=== PATIENT | female | born 1985 | race Caucasian/White ===

== ENCOUNTER 2017-08-21 11:50 | Emergency (ER) | payer MEDICAID ==
[~2017-08-21] VITALS: Ht 157.5 cm; Wt 78.5 kg
[2017-08-21 11:55] VITALS: Ht 157.5 cm; Wt 78.5 kg
[2017-08-21 13:34] LABS: microscopic required? YES; urine erythrocyte NEGATIVE (NEGATIVE)
[2017-08-21 14:08] VITALS: BP 118/76
== END 2017-08-21 14:08 | disposition home or self-care (01) ==
LOC: ED 11:50
PROVIDERS: Emergency Medicine
DX: O99.611 Diseases of the digestive system complicating pregnancy, first trimester (principal); R11.2 Nausea with vomiting, unspecified; R10.13 Epigastric pain; Z3A.12 12 weeks gestation of pregnancy
CPT/HCPCS: Q0162

== ENCOUNTER 2017-10-15 17:36 | Emergency (ER) | payer MEDICAID ==
[~2017-10-15] VITALS: Ht 157.5 cm; Wt 80.7 kg
[2017-10-15 17:38] VITALS: Ht 157.5 cm; Wt 80.7 kg
[2017-10-15 18:59] LABS: PLATELET COUNT 239 x10^3mcL (130-400); RED CELL DISTRIBUTION WIDTH 13.9 % (11.5-14.5)
[2017-10-15 19:00] LABS: microscopic required? NO
[2017-10-15 19:12] LABS: CALCIUM 8.5 mg/dL (8.5-10.1); CARBON DIOXIDE 26.7 mmol/L (21-32); CHLORIDE SERUM 106 mmol/L (98-107); GLUCOSE SERUM 92 mg/dL (74-106); POTASSIUM SERUM 3.5 mmol/L (3.5-5.1); SODIUM SERUM 139 mmol/L (136-145)
[2017-10-15 19:16] LABS: ALKALINE PHOSPHATASE 73 U/L (46-116); ALT/SGPT 16 U/L (14-59); AST/SGOT 15 U/L (15-37); BILIRUBIN TOTAL 0.1 mg/dL (0.20-1.00)
[2017-10-15 19:29] LABS: UA SPECIFIC GRAVITY <=1.005 (1.005-1.035); urine erythrocyte NEGATIVE (NEGATIVE)
[2017-10-15 19:30] LABS: ALBUMIN 2.8 g/dL (3.4-5.0)
[2017-10-15 19:41] LABS: CREATININE SERUM 0.5 mg/dL (0.6-1.0); GFR1 > 60 mL/min
[2017-10-16 00:07] VITALS: BP 121/60
== END 2017-10-16 00:07 | disposition home or self-care (01) ==
LOC: ED 17:36
PROVIDERS: Emergency Medicine
DX: O26.892 Other specified pregnancy related conditions, second trimester (principal); R42 Dizziness and giddiness; R06.02 Shortness of breath; R51 Headache; R35.0 Frequency of micturition; H53.8 Other visual disturbances; Z3A.20 20 weeks gestation of pregnancy
CPT/HCPCS: 36415; 83880; 85378; Q0092

== ENCOUNTER 2018-09-22 11:35 | Emergency (ER) | payer MEDICAID ==
[~2018-09-22] VITALS: Ht 162.6 cm; Wt 85.3 kg
[2018-09-22 11:39] VITALS: Ht 162.6 cm; Wt 85.3 kg
[2018-09-22 12:58] VITALS: BP 129/68
== END 2018-09-22 12:58 | disposition home or self-care (01) ==
LOC: ED 11:35
DX: M62.838 Other muscle spasm (principal); M62.830 Muscle spasm of back; H66.91 Otitis media, unspecified, right ear
CPT/HCPCS: J2001

== ENCOUNTER 2018-09-26 17:15 | Emergency (ER) | payer MEDICAID | END 2018-09-26 18:31 | disposition home or self-care (01) | LOC: ED 17:15 ==

== ENCOUNTER 2019-03-01 15:53 | Emergency (ER) | payer MEDICAID ==
[~2019-03-01] VITALS: Ht 157.5 cm; Wt 83.9 kg
[2019-03-01 15:56] VITALS: Ht 157.5 cm; Wt 83.9 kg
[2019-03-01 18:32] LABS: BASOPHIL % 0.8 % (0-2); PLATELET COUNT 290 x10^3mcL (130-400); RED CELL DISTRIBUTION WIDTH 13.2 % (11.5-14.5)
[2019-03-01 18:42] LABS: microscopic required? NO
[2019-03-01 18:52] LABS: CALCIUM 8.4 mg/dL (8.5-10.1); CARBON DIOXIDE 25.9 mmol/L (21-32); CHLORIDE SERUM 105 mmol/L (98-107); CREATININE SERUM 0.5 mg/dL (0.6-1.0); GFR1 > 60 mL/min; GLUCOSE SERUM 87 mg/dL (74-106); POTASSIUM SERUM 3.9 mmol/L (3.5-5.1); SODIUM SERUM 140 mmol/L (136-145)
[2019-03-01 18:57] LABS: ALBUMIN 3.7 g/dL (3.4-5.0); ALKALINE PHOSPHATASE 87 U/L (46-116); ALT/SGPT 25 U/L (14-59); AMYLASE 54 U/L (25-115); AST/SGOT 15 U/L (15-37); BILIRUBIN TOTAL 0.2 mg/dL (0.20-1.00); LIPASE 59 IU/L (73-393); TOTAL PROTEIN, SERUM 7.5 g/dL (6.4-8.2)
[2019-03-01 19:01] LABS: UA SPECIFIC GRAVITY 1.015 (1.005-1.035); urine erythrocyte NEGATIVE (NEGATIVE)
[2019-03-01 19:47] VITALS: BP 116/707
== END 2019-03-01 19:47 | disposition home or self-care (01) ==
LOC: ED 15:53
PROVIDERS: Emergency Medicine
DX: R10.32 Left lower quadrant pain (principal); R10.31 Right lower quadrant pain; R30.0 Dysuria; N32.89 Other specified disorders of bladder
CPT/HCPCS: J1885

== ENCOUNTER 2019-03-29 16:26 | Emergency (ER) | payer MEDICAID ==
[~2019-03-29] VITALS: Ht 157.5 cm; Wt 83.6 kg
[2019-03-29 16:57] VITALS: Ht 157.5 cm; Wt 83.6 kg
[2019-03-29 18:35] LABS: PLATELET COUNT 281 x10^3mcL (130-400); RED CELL DISTRIBUTION WIDTH 13.6 % (11.5-14.5)
[2019-03-29 18:42] LABS: UA SPECIFIC GRAVITY <=1.005 (1.005-1.035); microscopic required? YES; urine erythrocyte 3+ (NEGATIVE)
[2019-03-29 18:51] LABS: CALCIUM 8.6 mg/dL (8.5-10.1); CARBON DIOXIDE 26.4 mmol/L (21-32); CHLORIDE SERUM 106 mmol/L (98-107); CREATININE SERUM 0.6 mg/dL (0.6-1.0); GFR1 > 60 mL/min; GLUCOSE SERUM 86 mg/dL (74-106); POTASSIUM SERUM 4.3 mmol/L (3.5-5.1); SODIUM SERUM 141 mmol/L (136-145)
[2019-03-29 18:55] LABS: ALBUMIN 3.7 g/dL (3.4-5.0); ALKALINE PHOSPHATASE 75 U/L (46-116); ALT/SGPT 27 U/L (14-59); AST/SGOT 15 U/L (15-37); BILIRUBIN TOTAL 0.2 mg/dL (0.20-1.00); TOTAL PROTEIN, SERUM 7.3 g/dL (6.4-8.2)
[2019-03-29 22:35] VITALS: BP 126/90
== END 2019-03-29 22:35 | disposition home or self-care (01) ==
LOC: ED 16:26
PROVIDERS: Emergency Medicine
DX: O20.9 Hemorrhage in early pregnancy, unspecified (principal); O23.41 Unspecified infection of urinary tract in pregnancy, first trimester; Z3A.01 Less than 8 weeks gestation of pregnancy; Z86.32 Personal history of gestational diabetes
CPT/HCPCS: 36415; 87491; 87591; J0696

== ENCOUNTER 2019-04-02 17:12 | Emergency (ER) | payer MEDICAID ==
[~2019-04-02] VITALS: Ht 162.6 cm; Wt 84.8 kg
[2019-04-02 17:33] VITALS: Ht 162.6 cm; Wt 84.8 kg
[2019-04-02 19:13] LABS: BASOPHIL % 1.2 % (0-2); PLATELET COUNT 305 x10^3mcL (130-400); RED CELL DISTRIBUTION WIDTH 13.8 % (11.5-14.5)
[2019-04-02 20:25] VITALS: BP 116/60
== END 2019-04-02 20:25 | disposition home or self-care (01) ==
LOC: ED 17:12
PROVIDERS: Specialist
DX: O20.0 Threatened abortion (principal); Z3A.01 Less than 8 weeks gestation of pregnancy
CPT/HCPCS: 36415

== ENCOUNTER 2019-04-07 16:27 | Emergency (ER) | payer MEDICAID ==
[~2019-04-07] VITALS: Ht 160 cm; Wt 83.5 kg
[2019-04-07 16:32] VITALS: Ht 160 cm; Wt 83.5 kg
[2019-04-07 17:06] LABS: BASOPHIL % 1.2 % (0-2); PLATELET COUNT 332 x10^3mcL (130-400); RED CELL DISTRIBUTION WIDTH 13.6 % (11.5-14.5)
[2019-04-07 18:06] VITALS: BP 129/78
== END 2019-04-07 18:23 | disposition home or self-care (01) ==
LOC: ED 16:27
PROVIDERS: Emergency Medicine
DX: O03.9 Complete or unspecified spontaneous abortion without complication (principal)
CPT/HCPCS: 36415

== ENCOUNTER 2019-10-28 21:48 | Emergency (ER) | payer MEDICAID ==
[~2019-10-28] VITALS: Ht 162.6 cm; Wt 89.4 kg
[2019-10-28 21:58] VITALS: Ht 162.6 cm; Wt 89.4 kg
[2019-10-29 00:20] LABS: microscopic required? YES; urine erythrocyte NEGATIVE (NEGATIVE)
[2019-10-29 01:54] VITALS: BP 113/55
== END 2019-10-29 01:54 | disposition home or self-care (01) ==
LOC: ED 21:48
PROVIDERS: Emergency Medicine
DX: O23.42 Unspecified infection of urinary tract in pregnancy, second trimester (principal); J02.9 Acute pharyngitis, unspecified; R51 Headache; Z3A.28 28 weeks gestation of pregnancy
CPT/HCPCS: J0696

== ENCOUNTER 2019-11-24 18:30 | Emergency (ER) | payer MEDICAID ==
[~2019-11-24] VITALS: Ht 167.6 cm; Wt 88.9 kg
[2019-11-24 18:50] VITALS: Ht 167.6 cm; Wt 88.9 kg
[2019-11-24 20:08] LABS: microscopic required? NO
[2019-11-24 20:25] LABS: urine erythrocyte NEGATIVE (NEGATIVE)
[2019-11-24 21:10] VITALS: BP 114/63
== END 2019-11-24 21:10 | disposition home or self-care (01) ==
LOC: ED 18:30
PROVIDERS: Emergency Medicine
DX: O26.893 Other specified pregnancy related conditions, third trimester (principal); R51 Headache; R30.0 Dysuria; Z3A.28 28 weeks gestation of pregnancy
CPT/HCPCS: Q0163

== ENCOUNTER 2020-01-11 18:56 | Emergency (ER) | payer MEDICAID ==
[~2020-01-11] VITALS: Ht 160 cm; Wt 83.0 kg
[2020-01-11 19:12] VITALS: BP 129/77; Ht 160 cm; Wt 83.0 kg
== END 2020-01-11 22:20 | disposition left against medical advice (07) ==
LOC: ED 18:56
DX: Z53.21 Procedure and treatment not carried out due to patient leaving prior to being seen by health care provider (principal)